=== PATIENT | female | born 1980 | race American Indian/Alaskan Native ===

== ENCOUNTER 2017-06-24 09:10 | Emergency (ER) | payer SELFPAY ==
[2017-06-24 09:31] VITALS: BP 119/77
--- NOTE | 2017-06-24 11:28 | XRay Report ---
XRAY RIGHT MIDDLE FINGER AP AND LATERAL VIEWS: 06/24/17 09:10:00 CLINICAL: Pain. FINDINGS: No fracture or dislocation. Mild soft tissue swelling of the middle and index fingers. No foreign body or soft tissue air. IMPRESSION: Soft tissue swelling but otherwise normal.
[2017-06-24] MEDS ORDERED: XYLOCAINE 2% INFILTRATI ONE (12:17)
--- NOTE | 2017-06-24 12:18 | Emergency Department Report ---
Upper Extremity - HPI Chief Complaint: Extremity Injury, Upper Stated Complaint: FINGER SWOLLEN Time Seen by Provider: 06/24/17 12:05 Upper Extremity: Right Middle Finger Occurred When: 3 Days Severity: moderate Symptoms: Yes Limited Range of Movement, Yes Swelling, No Pain with Movement, No Deformity, No Numbness, No Weakness, No Bruising/Ecchymosis, No Laceration or Abrasion Other History: 36-year-old female past medical history none presents with complaint of 3 days of right distal middle fingertip pain and lateral nail and swelling. Patient is awake alert and oriented 3 not in acute distress states that 3 days ago she accidentally slammed the tip of her finger in a car door and subsequently noticed some swelling and yellow material at side of her nail edge. Visible paronychia at fingertip. ED Review of Systems ROS: Stated complaint: FINGER SWOLLEN Other details as noted in HPI Constitutional: denies: chills, fever Eyes: denies: eye pain, eye discharge, vision change ENT: denies: ear pain, throat pain Respiratory: denies: cough, shortness of breath, wheezing Cardiovascular: denies: chest pain, palpitations Endocrine: no symptoms reported Gastrointestinal: denies: abdominal pain, nausea, diarrhea Genitourinary: denies: urgency, dysuria, discharge Musculoskeletal: denies: back pain, joint swelling, arthralgia Skin: denies: rash, lesions Neurological: denies: headache, weakness, paresthesias Psychiatric: denies: anxiety, depression Hematological/Lymphatic: denies: easy bleeding, easy bruising ED Past Medical Hx - Past Medical History Previous Medical History?: Yes Additional medical history: ectopic preg. - Surgical History Past Surgical History?: No Additional Surgical History: tubal ligation, X 4. ECTOPIC - Social History Smoking Status: Current Every Day Smoker Substance Use Type: None - Medications Home Medications: Home Medications Medication Instructions Recorded Confirmed Last Taken Type Famotidine [Pepcid] 20 mg PO DAILY #30 tablet 05/25/14 Unknown Rx HYDROcodone/APAP 5-325 [[place] 1 each PO Q6HR PRN #14 tablet 05/25/14 Unknown Rx 5/325] Ondansetron [Zofran Odt] 4 mg PO ONCE #10 tab.rapdis 05/25/14 Unknown Rx Clindamycin [Clindamycin CAP] 600 mg PO BID #28 capsule 04/21/15 Unknown Rx Ondansetron [Zofran Odt] 4 mg PO BID #6 tab.rapdis 04/21/15 Unknown Rx Oxycodone HCl/Acetaminophen 1 each PO TID PRN #15 tablet 04/21/15 Unknown Rx [Percocet 7.5/325 mg] Cephalexin [Keflex] 500 mg PO Q8HR #40 cap 04/24/15 Unknown Rx Ibuprofen [Motrin] 800 mg PO Q8HR PRN #30 tablet 04/24/15 Unknown Rx Sulfamethoxazole/Trimethoprim 1 each PO BID #20 tablet 04/24/15 Unknown Rx [Bactrim DS TAB] traMADol [Ultram] 50 mg PO Q6HR PRN #14 tablet 04/24/15 Unknown Rx Cephalexin [Keflex] 500 mg PO Q12HR #14 cap 06/24/17 Unknown Rx Ibuprofen [Motrin] 800 mg PO Q8HR PRN #30 tablet 06/24/17 Unknown Rx Upper Extremity Exam - Exam General: Vital signs noted. No distress. Alert and acting appropriately. Head and Torso: No HEENT Abnormality, No Neck Tenderness, No Chest/Lungs Abnormality, No Abdominal Tenderness, No Back Tenderness Shoulder Exam: Yes Normal Range of Motion in Shoulder, No Shoulder Tenderness, No Clavicle Tenderness, No Shoulder Deformity, No AC Joint Tenderness Arm Exam: No Arm/Humerus Tenderness, No Arm Deformity Elbow: No Elbow Tenderness, No Normal Range of Motion in Elbow, No Elbow Deformity Forearm: No Forearm Tenderness, No Forearm Deformity, No Pain with Pronation, No Pain with Supination Wrist: Yes Normal ROM in Wrist, No Wrist Tenderness, No Wrist Deformity, No Snuffbox Tenderness, No Pain with Axial Thumb Compression Hand: Yes Digit Tenderness (at distal paronchyia), Yes Normal ROM in Digit(s) ( range of motion DIP PIP and MCP fully intact and against resistance on clinical exam), No Hand Tenderness, No Hand Deformity, No Digit(s) Deformity, No Tendon Dysfunction CMS Exam: Yes Normal Distal Pulses (distal capillary refill less than one second all fingers, distal radial and brachial and ulnar pulses intact to palpation), Yes Normal Capillary Refill, Yes Normal Distal Sensation, No Broken Skin ED Course Vital Signs 06/24/17 09:25 Temperature 98 F Pulse Rate 82 Blood Pressure 119/77 O2 Sat by Pulse 100 Oximetry - I & D Right Distal Finger Type of Procedure: Simple Site: distal right middle finger paronchyia Blade Size: 11 I & D Procedure: betadine prep Progress: Area infiltrated with 1% lidocaine with good local anesthesia achieved a single stab incision made at lateral nail edge at site of paronychia, moderate amount of purulent drainage. Procedure tolerated well with minimal bleeding - Nerve Block Consent Obtained: verbal consent Local Anesthetic Used: Lidocaine 2% Amount of anesthesia used: 4 Side: right Nerve Blocks: other (finger/digital) Procedure Successful: Yes Complications: none ED Medical Decision Making - Medical Decision Making A/P: Paronychia 1-successful incision and drainage 2-Motrin when necessary 3-warm water soaks 4-course of Keflex. I advised patient to return if distal fingertip continues to swell for any significant bleeding fever or chills difficulty ranging finger. Patient stated she understood my instructions. pt feels significant relief after incision and drainage. Critical care attestation.: If time is entered above; I have spent that time in minutes in the direct care of this critically ill patient, excluding procedure time. ED Disposition Clinical Impression: Paronychia Disposition: DC- TO HOME OR SELFCARE Is pt being admited?: No Does the pt Need Aspirin: No Condition: Stable Instructions: Paronychia (ED), Incision and Drainage (ED) Prescriptions: Cephalexin [Keflex] 500 mg PO Q12HR #14 cap Ibuprofen [Motrin] 800 mg PO Q8HR PRN #30 tablet PRN Reason: Pain Referrals: [facility] [Outside] - 3-[address] [facility] [Outside] - 3-5 Days Time of Disposition: 13:05
[2017-06-24] MEDS ORDERED: NORCO 5/325 PO ONE (12:23)
[2017-06-24] MEDS ORDERED: TRIPLE ANTIBIOTIC TP ONE (13:07)
== END 2017-06-24 13:13 | disposition home or self-care (01) ==
LOC: ED 09:10
DX: L03.011 Cellulitis of right finger (principal)

== ENCOUNTER 2017-07-20 17:44 | Emergency (ER) | payer OTHER ==
[2017-07-20] MEDS ORDERED: MOTRIN PO ONE (19:48)
[2017-07-20] MEDS ORDERED: ZOFRAN ODT PO ONE (19:48)
[2017-07-20] MEDS ORDERED: NORCO 5/325 PO ONE ×2 (19:48→22:03)
[2017-07-20] MEDS ORDERED: TORADOL IM ONE (22:03)
--- NOTE | 2017-07-20 22:38 | Emergency Department Report ---
<CHRISTYANTOINETTE HAYNA A - Last Filed: 07/21/17 10:13> ED Back Pain/Injury HPI - General Chief Complaint: Back Pain/Injury Stated Complaint: RIGHT LOWER BACK PAIN Time Seen by Provider: 07/20/17 22:01 - Related Data Previous Rx's Medication Instructions Recorded Last Taken Type Famotidine [Pepcid] 20 mg PO DAILY #30 tablet 05/25/14 Unknown Rx HYDROcodone/APAP 5-325 [[place] 1 each PO Q6HR PRN #14 tablet 05/25/14 Unknown Rx 5/325] Ondansetron [Zofran Odt] 4 mg PO ONCE #10 tab.rapdis 05/25/14 Unknown Rx Clindamycin [Clindamycin CAP] 600 mg PO BID #28 capsule 04/21/15 Unknown Rx Ondansetron [Zofran Odt] 4 mg PO BID #6 tab.rapdis 04/21/15 Unknown Rx Oxycodone HCl/Acetaminophen 1 each PO TID PRN #15 tablet 04/21/15 Unknown Rx [Percocet 7.5/325 mg] Cephalexin [Keflex] 500 mg PO Q8HR #40 cap 04/24/15 Unknown Rx Ibuprofen [Motrin] 800 mg PO Q8HR PRN #30 tablet 04/24/15 Unknown Rx Sulfamethoxazole/Trimethoprim 1 each PO BID #20 tablet 04/24/15 Unknown Rx [Bactrim DS TAB] traMADol [Ultram] 50 mg PO Q6HR PRN #14 tablet 04/24/15 Unknown Rx Cephalexin [Keflex] 500 mg PO Q12HR #14 cap 06/24/17 Unknown Rx Ibuprofen [Motrin] 800 mg PO Q8HR PRN #30 tablet 06/24/17 Unknown Rx Naproxen 500 mg PO BID PRN #30 tablet 07/20/17 Unknown Rx traMADol [Ultram] 50 mg PO Q6HR PRN #14 tablet 07/20/17 Unknown Rx Allergies Allergy/AdvReac Type Severity Reaction Status Date / Time doxycycline Allergy Vomiting Verified 04/24/15 17:02 ED Review of Systems ROS: Stated complaint: RIGHT LOWER BACK PAIN Other details as noted in HPI ED Past Medical Hx - Medications Home Medications: Home Medications Medication Instructions Recorded Confirmed Last Taken Type Famotidine [Pepcid] 20 mg PO DAILY #30 tablet 05/25/14 Unknown Rx HYDROcodone/APAP 5-325 [[place] 1 each PO Q6HR PRN #14 tablet 05/25/14 Unknown Rx 5/325] Ondansetron [Zofran Odt] 4 mg PO ONCE #10 tab.rapdis 05/25/14 Unknown Rx Clindamycin [Clindamycin CAP] 600 mg PO BID #28 capsule 04/21/15 Unknown Rx Ondansetron [Zofran Odt] 4 mg PO BID #6 tab.rapdis 04/21/15 Unknown Rx Oxycodone HCl/Acetaminophen 1 each PO TID PRN #15 tablet 04/21/15 Unknown Rx [Percocet 7.5/325 mg] Cephalexin [Keflex] 500 mg PO Q8HR #40 cap 04/24/15 Unknown Rx Ibuprofen [Motrin] 800 mg PO Q8HR PRN #30 tablet 04/24/15 Unknown Rx Sulfamethoxazole/Trimethoprim 1 each PO BID #20 tablet 04/24/15 Unknown Rx [Bactrim DS TAB] traMADol [Ultram] 50 mg PO Q6HR PRN #14 tablet 04/24/15 Unknown Rx Cephalexin [Keflex] 500 mg PO Q12HR #14 cap 06/24/17 Unknown Rx Ibuprofen [Motrin] 800 mg PO Q8HR PRN #30 tablet 06/24/17 Unknown Rx Naproxen 500 mg PO BID PRN #30 tablet 07/20/17 Unknown Rx traMADol [Ultram] 50 mg PO Q6HR PRN #14 tablet 07/20/17 Unknown Rx ED Course Vital Signs 07/20/17 07/21/17 17:48 00:15 Temperature 98.3 F 97.5 F L Pulse Rate 80 52 L Respiratory 20 16 Rate Blood Pressure 137/88 Blood Pressure 123/82 [Right] O2 Sat by Pulse 100 100 Oximetry - Reevaluation(s) Reevaluation #1: 07/21/17 00:08 X-ray lumbar spine reports normal exam with no mention of degenerative disc disease. Report communicated to patient and she has referral to orthopedic for further evaluation. 07/21/17 00:09 ED Medical Decision Making - Radiology Data Radiology results: report reviewed X-ray lumbar spine reports normal exam with no mention of degenerative disc disease Critical care attestation.: If time is entered above; I have spent that time in minutes in the direct care of this critically ill patient, excluding procedure time. ED Disposition Clinical Impression: Sciatica Qualifiers: Laterality: right Qualified Code(s): M54.31 - Sciatica, right side Disposition: TO HOME OR SELFCARE Condition: Stable Instructions: Sciatica (ED) Prescriptions: Naproxen 500 mg PO BID PRN #30 tablet PRN Reason: Pain traMADol [Ultram] 50 mg PO Q6HR PRN #14 tablet PRN Reason: Pain Referrals: [facility] [Provider Group] - 3-5 Days DARIA SHELTON MD [Staff Physician] - 3-5 Days CHRISTINE WICK MD [Referring] - 3-5 Days Forms: Accompanied Note, Work/School Release Form(ED) <STARR DUENAS - Last Filed: 07/23/17 14:28> ED Back Pain/Injury HPI - General Source: patient Limitations: No Limitations - History of Present Illness Initial Comments: 36-year-old female past medical history chronic back pain, , tubal ligation presents with complaint of acute on chronic lower back pain radiating from lower back to right buttock and into the right upper thigh. Patient denies any direct trauma or any recent falls. Denies saddle paresthesias and loss of bladder or bowel control. Patient is independently ambulatory without assistance. States pain is throbbing and persistent. States she has had episodes like this in the past. Denies any specific instance of direct trauma or lower back strain for the last few days. Denies fever chills increased urinary frequency or dysuria. Denies abdominal pain. Complaint: back pain Onset/Timin -: days(s) Place: home, work Radiation: buttocks, right leg Severity: moderate Severity scale (0 -10): 7 Quality: sharp, aching Consistency: intermittent Improves With: immobilization Worsens With: movement Context: while lifting, turning/twisting, bending Associated Symptoms: denies other symptoms ED Review of Systems Constitutional: denies: chills, fever Eyes: denies: eye pain, eye discharge, vision change ENT: denies: ear pain, throat pain Respiratory: denies: cough, shortness of breath, wheezing Cardiovascular: denies: chest pain, palpitations Endocrine: no symptoms reported Gastrointestinal: denies: abdominal pain, nausea, diarrhea Genitourinary: denies: urgency, dysuria, discharge Musculoskeletal: back pain (chronic 10+ years). denies: joint swelling, arthralgia Skin: denies: rash, lesions Neurological: denies: headache, weakness, paresthesias Psychiatric: denies: anxiety, depression Hematological/Lymphatic: denies: easy bleeding, easy bruising ED Past Medical Hx - Past Medical History Previous Medical History?: Yes Additional medical history: ectopic preg., Back injury - Surgical History Past Surgical History?: Yes Additional Surgical History: tubal ligation, X 4. ECTOPIC - Social History Smoking Status: Current Every Day Smoker Substance Use Type: Alcohol, Prescribed ED Physical Exam - General Limitations: No Limitations General appearance: alert, in no apparent distress - Head Head exam: Present: atraumatic, normocephalic - Eye Eye exam: Present: normal appearance, PERRL, EOMI - ENT ENT exam: Present: mucous membranes moist - Neck Neck exam: Present: normal inspection, full ROM - Respiratory Respiratory exam: Present: normal lung sounds bilaterally. Absent: respiratory distress - Cardiovascular Cardiovascular Exam: Present: regular rate, normal rhythm. Absent: systolic murmur, diastolic murmur, rubs, gallop - GI/Abdominal GI/Abdominal exam: Present: soft, normal bowel sounds - Extremities Exam Extremities exam: Present: normal inspection - Back Exam Back exam: Present: normal inspection, full ROM (back flexion and extension intact, no flank tenderness on percussion), other (no midline cervical thoracic or lumbar spinal tenderness on palpation) - Neurological Exam Neurological exam: Present: alert, oriented X3, CN II-XII intact, normal gait - Psychiatric Psychiatric exam: Present: normal affect, normal mood - Skin Skin exam: Present: warm, dry, intact, normal color. Absent: rash ED Medical Decision Making - Medical Decision Making A/P: lower back pain, sciatica 1- naproxen prn, short course tramadol 2- follow up with ortho and administration specialist/ pain management 3- no clinical signs of cauda equina. ED Disposition Is pt being admited?: No Does the pt Need Aspirin: No Time of Disposition: 23:11
[2017-07-20 23:10] LABS: Bilirubin,Urine NEG (Negative); Blood,Urine NEG (Negative); Ketones,Urine NEG (Negative); Leukocyte Esterase,Urine NEG (Negative); Mucus,Urine FEW /HPF; Nitrite,Urine NEG (Negative); Protein,Urine <15 mg/dL mg/dL (Negative)
--- NOTE | 2017-07-21 | XRay Report ---
FINAL REPORT PROCEDURE: XR SPINE LUMBOSACRAL 2-3V TECHNIQUE: Lumbar spine radiographs, including AP, lateral, and lumbosacral spot views. CPT 96364 HISTORY: lower back pain COMPARISON: No prior studies are available for comparison. FINDINGS: Alignment: Normal. Vertebral body heights/Disk spaces: Normal. Fracture(s): None. Facets: Normal. Bone mineralization: Normal. IMPRESSION: Normal Examination.
[2017-07-21 00:40] VITALS: BP 123/82
== END 2017-07-21 00:15 | disposition home or self-care (01) ==
LOC: ED 17:44
DX: M54.31 Sciatica, right side (principal); F17.200 Nicotine dependence, unspecified, uncomplicated; G89.29 Other chronic pain; Z98.51 Tubal ligation status; Z88.1 Allergy status to other antibiotic agents
CPT/HCPCS: 72100; 81001; 96372; 99284; J1885; Q0162

== ENCOUNTER 2018-11-13 22:47 | Emergency (ER) | payer MEDICAID, OTHER ==
[2018-11-13] MEDS ORDERED: IBUPROFEN PO ONE (23:15)
[2018-11-14] MEDS ORDERED: ULTRAM PO ONE (00:34)
--- NOTE | 2018-11-14 00:34 | Emergency Department Report ---
ED ENT HPI - General Chief complaint: Dental/Oral Stated complaint: TOOTH PAIN Time Seen by Provider: 11/14/18 00:26 Source: patient Mode of arrival: Ambulatory Limitations: No Limitations - History of Present Illness Initial comments: Patient is a 38-year-old comes in with right dental pain. Involving tooth #[id number]. There is no liquids. No gingival abscess. No abscess and posterior fornix. She is afebrile. Ambulatory. ABCs intact. She is controlling secretions. She is requesting pain medicine so she can sleep. EMR reviewed and patient is here quite often for dental pain and caries. I discussed with patient the need to follow up with DENTIST - Related Data Previous Rx's Medication Instructions Recorded Last Taken Type Amoxicillin 500 mg PO BID #20 capsule 11/14/18 Unknown Rx Naproxen [Naprosyn] 500 mg PO BID PRN #20 tablet 11/14/18 Unknown Rx Allergies Allergy/AdvReac Type Severity Reaction Status Date / Time doxycycline Allergy Vomiting Verified 04/24/15 17:02 ED Dental HPI - General Chief complaint: Dental/Oral Stated complaint: TOOTH PAIN Time Seen by Provider: 11/14/18 00:26 Source: patient Mode of arrival: Ambulatory Limitations: No Limitations - Related Data Previous Rx's Medication Instructions Recorded Last Taken Type Amoxicillin 500 mg PO BID #20 capsule 11/14/18 Unknown Rx Naproxen [Naprosyn] 500 mg PO BID PRN #20 tablet 11/14/18 Unknown Rx Allergies Allergy/AdvReac Type Severity Reaction Status Date / Time doxycycline Allergy Vomiting Verified 04/24/15 17:02 ED Review of Systems ROS: Stated complaint: TOOTH PAIN Other details as noted in HPI Comment: All other systems reviewed and negative ED Past Medical Hx - Past Medical History Previous Medical History?: Yes Additional medical history: ectopic preg., Back injury - Surgical History Past Surgical History?: Yes Additional Surgical History: tubal ligation, X 4. ECTOPIC - Family History Family history: no significant - Social History Smoking Status: Current Every Day Smoker Substance Use Type: None - Medications Home Medications: Home Medications Medication Instructions Recorded Confirmed Last Taken Type Amoxicillin 500 mg PO BID #20 capsule 11/14/18 Unknown Rx Naproxen [Naprosyn] 500 mg PO BID PRN #20 tablet 11/14/18 Unknown Rx ED Physical Exam - General Limitations: No Limitations General appearance: alert - Head Head exam: Present: atraumatic - Eye Eye exam: Present: normal appearance, PERRL - ENT ENT exam: Present: normal exam, mucous membranes moist - Expanded ENT Exam Expanded Mouth exam: Absent: drooling, trismus, muffled voice, tongue normal, tongue elevation Teeth exam: Present: dental caries 1 - Other (CARIES) Throat exam: Negative: tonsillar erythema, tonsillomegaly, tonsillar exudate, R peritonsillar mass, L peritonsillar mass - Neck Neck exam: Present: normal inspection - Respiratory Respiratory exam: Present: normal lung sounds bilaterally - Cardiovascular Cardiovascular Exam: Present: regular rate - GI/Abdominal GI/Abdominal exam: Present: soft - Rectal Rectal exam: Present: deferred - Extremities Exam Extremities exam: Present: normal inspection - Back Exam Back exam: Present: normal inspection - Neurological Exam Neurological exam: Present: alert, oriented X3 - Psychiatric Psychiatric exam: Present: normal affect, normal mood - Skin Skin exam: Present: warm, dry, intact ED Course Vital Signs 11/13/18 23:11 Temperature 98.8 F Pulse Rate 73 Respiratory 18 Rate Blood Pressure 110/65 O2 Sat by Pulse 99 Oximetry ED Medical Decision Making - Medical Decision Making SIMPLE DENTAL PAIN NO ABSCESS ABC INTACT CONTROLLING SECRETIONS VSS AFEBRILE MEDICATED DC HOME WITH DMD FOLLOW UP Vital Signs (72 hours) 11/13/18 23:11 Temperature 98.8 F Pulse Rate 73 Respiratory 18 Rate Blood Pressure 110/65 O2 Sat by Pulse 99 Oximetry Critical care attestation.: If time is entered above; I have spent that time in minutes in the direct care of this critically ill patient, excluding procedure time. ED Disposition Clinical Impression: Dental caries Disposition: DC-01 TO HOME OR SELFCARE Is pt being admited?: No Does the pt Need Aspirin: No Condition: Stable Instructions: Dental Caries (ED) Additional Instructions: MED UNTIL GONE FOLLOW UP DMD Prescriptions: Amoxicillin 500 mg PO BID #20 capsule Naproxen [Naprosyn] 500 mg PO BID PRN #20 tablet PRN Reason: Pain Referrals: [facility] [Outside] - 3-5 Days [facility] [Outside] - 3-5 Days Time of Disposition: 00:30
[2018-11-15 18:00] VITALS: BP 110/65
== END 2018-11-14 01:35 | disposition home or self-care (01) ==
LOC: ED 22:47
DX: K02.9 Dental caries, unspecified (principal); F17.200 Nicotine dependence, unspecified, uncomplicated
CPT/HCPCS: 99282

== ENCOUNTER 2019-09-13 18:58 | Emergency (ER) | payer MEDICAID, OTHER ==
[2019-09-13 19:02] VITALS: BP 121/83
--- NOTE | 2019-09-13 19:42 | Emergency Department Report ---
Blank Doc - Documentation Documentation: 39-year-old female that presents with left shoulder pain. This initial assessment/diagnostic orders/clinical plan/treatment(s) is/are subject to change based on patient's health status, clinical progression and re- assessment by fellow clinical providers in the ED. Further treatment and workup at subsequent clinical providers discretion. Patient/guardians urged not to elope from the ED as their condition may be serious if not clinically assessed and managed. Initial orders include: 1- Patient sent to [facility] for further evaluation and treatment 2- xrays
--- NOTE | 2019-09-13 20:17 | XRay Report ---
LEFT SHOULDER 3 VIEW(S) INDICATION / CLINICAL INFORMATION: SEVERE PAIN AND DECREASED ROM COMPARISON: None available. FINDINGS: No acute skeletal or soft tissue abnormality. Normal alignment of the glenohumeral and acro mioclavicular joints. Signer Name: Chong Donohue MD Signed: 09/13/2019 8:12 PM Workstation Name: [id number]
[2019-09-13] MEDS ORDERED: dexAMETHasone 20 MG/5 ML VIAL IM ONE (21:38)
[2019-09-13] MEDS ORDERED: KETOROLAC 30 MG/1 ML INJ IM ONE (21:38)
[2019-09-13] MEDS ORDERED: ACETAMINOPHEN 500 MG TAB PO ONE (21:38)
--- NOTE | 2019-09-13 22:29 | Emergency Department Report ---
ED Upper Extremity Inj HPI - General Chief Complaint: Shoulder Injury Stated Complaint: LFT SHOULDER PAIN Time Seen by Provider: 09/13/19 19:42 Source: patient Mode of arrival: Ambulatory Limitations: No Limitations - History of Present Illness Initial Comments: Patient is a 39-year-old -[place] female with no past medical history who presents to the ED with acute onset persistent nontraumatic left shoulder pain for 1 week after repeated heavy lifting at work. Patient states the pain has worsened in the last 2 days such that she has not been able to perform any active range of motion of the left shoulder because of pain. Patient denies chest pain, shortness of breath, dizziness, nausea, vomiting, neck pain, fall, traumatic injury, numbness and tingling or weakness of left arm. MD Complaint: Injury to:: left, shoulder -: Sudden, week(s) (1) Other Extremity Injury: Shoulder: Left (severe left shoulder pain) Other Injuries: none Place: work Severity scale (0 -10): 8 Improves With: none Worsens With: movement of extremity (left shoulder) Context: other (lifting at work) Associated Symptoms: denies other symptoms. denies: weakness, numbness, neck pain, suspects foreign body, nausea/vomiting, heard/felt popping sensat - Related Data Previous Rx's Medication Instructions Recorded Last Taken Type Amoxicillin 500 mg PO BID #20 capsule 11/14/18 Unknown Rx Naproxen [Naprosyn] 500 mg PO BID PRN #20 tablet 11/14/18 Unknown Rx Naproxen 500 mg PO Q12H PRN #30 tablet 09/13/19 Unknown Rx predniSONE [Deltasone] 40 mg PO QDAY #10 tab 09/13/19 Unknown Rx tiZANidine [Zanaflex 4mg TAB] 4 mg PO Q8H PRN #21 tablet 09/13/19 Unknown Rx traMADoL [Ultram] 50 mg PO Q6HR PRN #12 tablet 09/13/19 Unknown Rx Allergies Allergy/AdvReac Type Severity Reaction Status Date / Time doxycycline Allergy Vomiting Verified 04/24/15 17:02 ED Review of Systems ROS: Stated complaint: LFT SHOULDER PAIN Other details as noted in HPI Constitutional: denies: chills, fever Eyes: denies: eye pain, eye discharge, vision change ENT: denies: ear pain, throat pain Respiratory: denies: cough, shortness of breath, wheezing Cardiovascular: denies: chest pain, palpitations Endocrine: no symptoms reported Gastrointestinal: denies: abdominal pain, nausea, diarrhea Genitourinary: denies: urgency, dysuria, discharge Musculoskeletal: arthralgia (left shoulder), myalgia. denies: back pain, joint swelling Skin: denies: rash, lesions Neurological: denies: headache, weakness, paresthesias Psychiatric: denies: anxiety, depression Hematological/Lymphatic: denies: easy bleeding, easy bruising ED Past Medical Hx - Past Medical History Previous Medical History?: No Additional medical history: ectopic preg., Back injury - Surgical History Past Surgical History?: Yes Additional Surgical History: tubal ligation, X 4. ECTOPIC - Social History Smoking Status: Never Smoker Substance Use Type: None - Medications Home Medications: Home Medications Medication Instructions Recorded Confirmed Last Taken Type Amoxicillin 500 mg PO BID #20 capsule 11/14/18 Unknown Rx Naproxen [Naprosyn] 500 mg PO BID PRN #20 tablet 11/14/18 Unknown Rx Naproxen 500 mg PO Q12H PRN #30 tablet 09/13/19 Unknown Rx predniSONE [Deltasone] 40 mg PO QDAY #10 tab 09/13/19 Unknown Rx tiZANidine [Zanaflex 4mg TAB] 4 mg PO Q8H PRN #21 tablet 09/13/19 Unknown Rx traMADoL [Ultram] 50 mg PO Q6HR PRN #12 tablet 09/13/19 Unknown Rx ED Physical Exam - General Limitations: No Limitations General appearance: alert, in no apparent distress - Head Head exam: Present: atraumatic, normocephalic, normal inspection - Eye Eye exam: Present: normal appearance, PERRL, EOMI Pupils: Present: normal accommodation - ENT ENT exam: Present: normal exam, normal orophraynx, mucous membranes moist, TM's normal bilaterally, normal external ear exam - Neck Neck exam: Present: normal inspection, full ROM - Respiratory Respiratory exam: Present: normal lung sounds bilaterally. Absent: respiratory distress, wheezes, rales, stridor, chest wall tenderness, accessory muscle use, decreased breath sounds - Cardiovascular Cardiovascular Exam: Present: regular rate, normal rhythm, normal heart sounds. Absent: systolic murmur, diastolic murmur, rubs, gallop - GI/Abdominal GI/Abdominal exam: Present: soft, normal bowel sounds. Absent: tenderness, hypoactive bowel sounds - Extremities Exam Extremities exam: Present: normal inspection, tenderness (Palpable left shoulder tenderness with limited range of motion due to pain), normal capillary refill. Absent: full ROM (Limited range of motion of left shoulder due to pain) - Back Exam Back exam: Present: normal inspection, full ROM. Absent: tenderness, CVA tenderness (R), CVA tenderness (L), muscle spasm, paraspinal tenderness - Neurological Exam Neurological exam: Present: alert, oriented X3, CN II-XII intact, normal gait, reflexes normal - Psychiatric Psychiatric exam: Present: normal affect, normal mood - Skin Skin exam: Present: warm, dry, intact, normal color. Absent: rash ED Course Vital Signs 09/13/19 19:01 Temperature 98.5 F Pulse Rate 83 Respiratory 16 Rate Blood Pressure 121/83 O2 Sat by Pulse 100 Oximetry ED Medical Decision Making - Radiology Data Radiology results: report reviewed, image reviewed Left shoulder x-ray shows no acute fractures or subluxations or degenerative joint disease. - Medical Decision Making This is a 39-year-old female with no past medical history who presents to the ED with acute onset persistent nontraumatic left shoulder pain for 1 week after repeated heavy lifting at work. In the ED, patient is alert and oriented x3 and is not in distress. Patient was treated for pain in the ED and left shoulder x-ray shows no acute fractures or subluxations. On reevaluation patient's pain is moderately controlled with medications. Patient was discharged home on pain medications and advised follow-up with her primary care physician in 7 to 10 days for reevaluation. Patient was advised to return to the ED immediately if symptoms get worse. - Differential Diagnosis tendonitis; muscle strain; bursitis; muscle spasm; sprain Critical care attestation.: If time is entered above; I have spent that time in minutes in the direct care of this critically ill patient, excluding procedure time. ED Disposition Clinical Impression: Bursitis of left shoulder, Left shoulder tendinitis Sprain of left shoulder Qualifiers: Encounter type: initial encounter Shoulder sprain type: unspecified sprain Qualified Code(s): S43.402A - Unspecified sprain of left shoulder joint, initial encounter Disposition: TO HOME OR SELFCARE Is pt being admited?: No Does the pt Need Aspirin: No Condition: Stable Instructions: Tendinitis (ED), Shoulder Bursitis (ED), Muscle Strain (ED) Additional Instructions: Your symptoms are due to ligament inflammation in your left shoulder. Therefore take pain medications with food, drink plenty fluids and follow-up with your primary care physician in 5 to 7 days for reevaluation. Return to the ED immediately if symptoms get worse. Prescriptions: predniSONE [Deltasone] 40 mg PO QDAY #10 tab Naproxen 500 mg PO Q12H PRN #30 tablet PRN Reason: Pain , Severe (7-10) traMADoL [Ultram] 50 mg PO Q6HR PRN #12 tablet PRN Reason: Pain tiZANidine [Zanaflex 4mg TAB] 4 mg PO Q8H PRN #21 tablet PRN Reason: Muscle Spasm Referrals: PRIMARY CARE,MD [Primary Care Provider] - 3-5 Days Forms: Work/School Release Form(ED) Time of Disposition: 22:27 Print Language: SERBIAN
== END 2019-09-13 22:41 | disposition home or self-care (01) ==
LOC: ED 18:58
DX: S43.402A Unspecified sprain of left shoulder joint, initial encounter (principal); M75.52 Bursitis of left shoulder; Z98.51 Tubal ligation status; Z98.890 Other specified postprocedural states; Z79.899 Other long term (current) drug therapy; Z88.6 Allergy status to analgesic agent; X58.XXXA Exposure to other specified factors, initial encounter; Y93.89 Activity, other specified; Y92.89 Other specified places as the place of occurrence of the external cause; Y99.8 Other external cause status
CPT/HCPCS: 73030; 96372; 99283; J1885

== ENCOUNTER 2021-12-07 10:45 | Emergency (ER) | payer OTHER ==
[2021-12-07] MEDS ORDERED: HYDROcodone/ACETAMINOPHEN 5-325 MG TAB PO ONE (11:17)
[2021-12-07] MEDS ORDERED: dexAMETHasone 4 MG/ML VIAL IV ONE (11:17)
--- NOTE | 2021-12-07 12:07 | XRay Report ---
Cervical spine series INDICATION: Neck pain FINDINGS: Straightening of normal cervical spine alignment. No prevertebral soft tissue swelling. Cer vicothoracic junction appears normal. Odontoid appears normal. IMPRESSION: No acute findings. Signer Name: Ed Lnae MD Signed: 12/07/2021 12:03 PM Workstation Name: [id number]
--- NOTE | 2021-12-07 13:32 | Emergency Department Report ---
ED General Adult HPI - General Chief complaint: Neck Pain/Injury Stated complaint: PINCH NERVE Time Seen by Provider: 12/07/21 11:03 Source: patient Mode of arrival: Ambulatory Limitations: No Limitations - History of Present Illness Initial comments: 41-year-old [place] female [facility] department complaining of left-sided neck pain that started spontaneously after waking up on yesterday and and worsened this morning after waking. Pain is spastic in nature worse with palpation and range of motion. Ports no numbness or tingling, no headache, no fever, chills, sweats. No nausea vomiting, no chest pain palpitations or shortness of breath. Reports no hemoptysis hematemesis hematochezia, no traumatic event preceding the symptoms. Location: neck Radiation: non-radiation Severity scale (0 -10): 5 Quality: aching, dull Improves with: none Worsens with: none Associated Symptoms: denies: denies other symptoms, diaphoresis, loss of appetite, malaise, nausea/vomiting, shortness of breath, syncope, weakness Treatments Prior to Arrival: none - Related Data Previous Rx's Medication Instructions Recorded Last Taken Type Naproxen [Naprosyn] 500 mg PO BID PRN #20 tablet 11/14/18 Unknown Rx RX: Amoxicillin 500 mg PO BID #20 capsule 11/14/18 Unknown Rx RX: Naproxen 500 mg PO Q12H PRN #30 tablet 09/13/19 Unknown Rx RX: predniSONE [Deltasone] 40 mg PO QDAY #10 tab 09/13/19 Unknown Rx tiZANidine [Zanaflex 4mg TAB] 4 mg PO Q8H PRN #21 tablet 09/13/19 Unknown Rx traMADoL [Ultram] 50 mg PO Q6HR PRN #12 tablet 09/13/19 Unknown Rx Ketorolac [Toradol] 10 mg PO Q6H PRN #20 12/07/21 Unknown Rx methOCARBAMOL [Robaxin TAB] 750 mg PO Q8H #14 12/07/21 Unknown Rx Allergies Allergy/AdvReac Type Severity Reaction Status Date / Time doxycycline Allergy Vomiting Verified 04/24/15 17:02 ED Review of Systems ROS: Stated complaint: PINCH NERVE Other details as noted in HPI Comment: All other systems reviewed and negative ED Past Medical Hx - Past Medical History Previous Medical History?: Yes Additional medical history: ectopic preg., Back injury, Herniated disc in lower back - Surgical History Past Surgical History?: Yes Additional Surgical History: tubal ligation, X 4. ECTOPIC - Social History Smoking Status: Never Smoker Substance Use Type: None - Medications Home Medications: Home Medications Medication Instructions Recorded Confirmed Last Taken Type Naproxen [Naprosyn] 500 mg PO BID PRN #20 tablet 11/14/18 Unknown Rx RX: Amoxicillin 500 mg PO BID #20 capsule 11/14/18 Unknown Rx RX: Naproxen 500 mg PO Q12H PRN #30 tablet 09/13/19 Unknown Rx RX: predniSONE [Deltasone] 40 mg PO QDAY #10 tab 09/13/19 Unknown Rx tiZANidine [Zanaflex 4mg TAB] 4 mg PO Q8H PRN #21 tablet 09/13/19 Unknown Rx traMADoL [Ultram] 50 mg PO Q6HR PRN #12 tablet 09/13/19 Unknown Rx Ketorolac [Toradol] 10 mg PO Q6H PRN #20 12/07/21 Unknown Rx methOCARBAMOL [Robaxin TAB] 750 mg PO Q8H #14 12/07/21 Unknown Rx ED Physical Exam - General Limitations: No Limitations General appearance: alert, in no apparent distress - Head Head exam: Present: atraumatic, normocephalic - Eye Eye exam: Present: normal appearance - ENT ENT exam: Present: normal exam, normal orophraynx, mucous membranes moist, TM's normal bilaterally, normal external ear exam - Neck Neck exam: Present: tenderness (To the left trapezial region with palpation. Patient has a pain patch over that region with no rashes present. No midline tenderness is present. Spurling's test is negative.), full ROM. Absent: lymphadenopathy - Respiratory Respiratory exam: Present: normal lung sounds bilaterally. Absent: respiratory distress, wheezes, rales - Cardiovascular Cardiovascular Exam: Present: regular rate, normal rhythm. Absent: systolic murmur, diastolic murmur, rubs, gallop - GI/Abdominal GI/Abdominal exam: Present: soft, normal bowel sounds - Extremities Exam Extremities exam: Present: normal inspection, normal capillary refill - Back Exam Back exam: Present: normal inspection. Absent: CVA tenderness (R), CVA tenderness (L), muscle spasm - Neurological Exam Neurological exam: Present: alert, oriented X3, CN II-XII intact, normal gait. Absent: motor sensory deficit - Psychiatric Psychiatric exam: Present: normal affect, normal mood - Skin Skin exam: Present: warm, dry, intact, normal color. Absent: rash ED Course Vital Signs 12/07/21 10:52 Temperature 98.0 F Pulse Rate 82 Respiratory 18 Rate Blood Pressure 140/92 O2 Sat by Pulse 100 Oximetry Critical care attestation.: If time is entered above; I have spent that time in minutes in the direct care of this critically ill patient, excluding procedure time. ED Disposition Clinical Impression: Cervical paraspinal muscle spasm Disposition: HOME / SELF CARE / HOMELESS Is pt being admited?: No Does the pt Need Aspirin: No Condition: Stable Instructions: Muscle Cramps and Spasms Prescriptions: methOCARBAMOL [Robaxin TAB] 750 mg PO Q8H #14 Ketorolac [Toradol] 10 mg PO Q6H PRN #20 PRN Reason: Pain Referrals: NOEMY HARTMAN MD [Primary Care Provider] - 3-5 Days
[2021-12-07 13:33] VITALS: BP 124/89
== END 2021-12-07 13:32 | disposition home or self-care (01) ==
LOC: ED 10:45
DX: M62.838 Other muscle spasm (principal); Z98.890 Other specified postprocedural states; Z88.8 Allergy status to other drugs, medicaments and biological substances
CPT/HCPCS: 72040; 96374; 99283; J1100

== ENCOUNTER 2021-12-31 22:19 | Emergency (ER) | payer OTHER | END 2021-12-31 22:30 | disposition left against medical advice (07) | LOC: ED 22:19 | DX: M54.9 Dorsalgia, unspecified (principal); Z53.21 Procedure and treatment not carried out due to patient leaving prior to being seen by health care provider ==